=== PATIENT | male | born 1960 | race Caucasian/White ===

== ENCOUNTER 2019-12-22 09:51 | Outpatient (CLI) | payer BC, SELFPAY ==
[2019-12-22 10:14] LABS: Hematocrit 43.4 % (42.0-52.0); Hemoglobin 14.8 g/dL (14.0-18.0); Mean Corpuscular HGB Conc 34.1 g/dl (32-36); Mean Corpuscular Volume 90.8 fl (80-100); Mean Platelet Volume 8.6 fl (7.4-10.4); Platelet Count Result 274 k/mm3 (150-375); Red Blood Count 4.78 M/mm3 (4.6-6.20); Red Cell Distribution Width 12.9 % (11.5-14.5); White Blood Count 5.6 K/mm3 (4.5-10.0)
[2019-12-22 10:30] LABS: Blood Urea Nitrogen 20 mg/dL (9-20); Carbon Dioxide 30 mmol/L (22-30); Chloride 97 mmol/L (98-107); Estimated Glomerular Filt Rate > 60; Glucose 100 mg/dL (75-110); Potassium 4.2 mmol/L (3.4-5.0); Sodium 138 mmol/L (137-145)
--- NOTE | 2019-12-22 11:58 | ECG_ITS ---
Measurements Intervals [place] Rate: 70 P: 67 ME: 173 QRS: 22 QRSD: 119 T: 35 QT: 377 QTc: 408 Interpretive Statements SINUS RHYTHM INCOMPLETE RIGHT BUNDLE BRANCH BLOCK BORDERLINE ECG Electronically Signed On 12-22-2019 12:18:21 [employer] by Lino Rios D.O.
== END 2019-12-22 09:52 | disposition home or self-care (01) ==
DX: M51.26 Other intervertebral disc displacement, lumbar region (principal); I45.10 Unspecified right bundle-branch block
CPT/HCPCS: 36415; 80048; 85027; 93005

== ENCOUNTER → 2021-03-17 00:19 | Outpatient (CLI) | payer BC, SELFPAY ==
[2021-03-17 18:42] LABS: SARS-CoV-2 RNA PCR Negative
== END ==
PROVIDERS: PCP Family Medicine; Visit Provider Internal Medicine Gastroenterology
DX: Z01.812 Encounter for preprocedural laboratory examination (principal); Z20.822 Contact with and (suspected) exposure to COVID-19
CPT/HCPCS: C9803; U0003; U0005

== ENCOUNTER 2021-03-20 00:40 | Day surgery (SDC) | payer BC, SELFPAY ==
[2021-03-08 09:13] VITALS: BMI 33.2
[2021-03-20 08:08] VITALS: BP 123/71; PULSE 70; RESP 20; TEMP 35.2; O2SAT 100; BMI 33.0
[2021-03-20] MEDS: LACTATED RINGERS 1,000 ML 150 ML IV CONT (08:14)
--- NOTE | 2021-03-20 08:52 | WPDANESEPPF ---
Anes - Initial Pre Proc Eval Procedure: Operation Date: 03/20/21 09:15 Proposed Procedures p Screening Colonoscopy - Jaren Chavarria MD Date/Time: 03/20/21 08:52 Surgeon: Jaren Chavarria MD Pre Op Diagnosis: neoplasm screening Patient Data Age: 61 Gender: M Height: 6 ft Weight: 110.7 kg Last Vital Signs Temp 95.3 F L 03/20/21 08:08 Pulse 70 03/20/21 08:08 Resp 20 03/20/21 08:08 BP 123/71 03/20/21 08:08 Pulse Ox 100 03/20/21 08:08 Allergies Allergy/AdvReac Type Severity Reaction Status Date / Time oranges Allergy Severe Swelling Uncoded 03/20/21 08:00 of Lip/Tongue/Throat Home Medications Medication Instructions Recorded Confirmed Type escitalopram oxalate 10 mg tablet 10 mg PO DAILY #90 tablet 08/04/20 03/20/21 Rx cyanocobalamin (vitamin B-12) 1,000 mcg PO DAILY 08/14/20 03/20/21 History 1,000 mcg tablet linaclotide 145 mcg capsule 145 mcg PO DAILY #90 cap 02/20/21 03/20/21 Rx Patient hx anesthesia problems: none Family hx anesthesia problems: none PMFSH Past Medical History Medical History (Updated 01/31/21 @ 09:24 by Ronn Valdes MD) Abnormal fasting glucose BMI 33.0-33.9,adult Carpal tunnel syndrome of left wrist Chronic depression Chronic right shoulder pain Colon cancer screening Degenerative joint disease (DJD) of lumbar spine Depression Encounter for prostate cancer screening Encounter for wellness examination in adult Hypogonadism male IBS (irritable bowel syndrome) Irritable bowel syndrome with constipation Obesity (BMI 35.0-39.9 without comorbidity) Obstructive sleep apnea on CPAP Vitamin B12 deficiency anemia Surgical History Surgical History (Updated 01/14/20 @ 09:09 by Zeke Koroma CMA) History of lumbar spinal fusion L4-L5 2013 Hx of microdiscectomy Jan 08, 2020 L3-L4 Family History Family History (Updated 01/14/20 @ 09:10 by Zeke Koroma CMA) Father Acute myocardial infarction COPD (chronic obstructive pulmonary disease) Mother No problems noted. Social History Social History Smoking packs per day: 0.5 Smoking cigarettes per day: 10.0 Years smoked: 15 Smoking pack-years: 7.50 Smoking status: Former smoker Tobacco type: cigarettes Alcohol intake: current Drinks per week: 10 Substance use: never Substance use type: does not use Living arrangements: with family Spiritual care concerns: No Anes - Eval Final PreProcedure Day of Procedure 03/20/21 08:52 Patient weight: obese Heart: regular rate and rhythm Lungs: clear to auscultation Airway: Mallampati scale class II Neurological: alert and oriented Last oral intake: >/= 8 hours ASA classification: III Emergent: no Anesthetic plan: proceed Anesthesia type and monitoring: general GIVS and standard monitoring Informed Consent: The patient's anesthetic plan and its attendant risks and benefits were discussed with the patient/family/POA. Questions were solicited and answers provided to the satisfaction of the patient/family/POA.
--- NOTE | 2021-03-20 09:06 | PM.HPGS ---
History of Present Illness History of Present Illness Consent: Risks, benefits, and alternatives have been discussed and questions answered. Patient agrees to proceed with procedure. Chief complaint: neoplasm screening Narrative: Geoffrey Newman is a 61 year old male with last colonoscopy ~ 10 years ago. Review of Systems Constitutional: Constitutional: Denies headache(s) and Denies weakness Eyes: Eyes: Denies blurry vision ENT: Reports Normal hearing present, Denies headache(s) and Denies neck pain Cardiovascular: Cardiovascular: Denies chest pain and Denies dyspnea Respiratory: Respiratory: Denies dyspnea Gastrointestinal: Gastrointestinal: Reports no additional gastrointestinal complaints Genitourinary: Genitourinary: Denies dysuria Musculoskeletal: Musculoskeletal: Denies neck pain Integumentary/Breasts: Skin/Breast: Denies dry skin Neurologic: Reports Normal hearing present, Denies headache(s) and Denies weakness Psychiatric: Psychiatric: Denies anxiety Endocrine: Endocrine: Denies change in body appearance Hematologic/Lymphatic: Hematologic/Lymphatic: Denies easy bleeding Allergic/Immunologic: Allergic/Immunologic: Denies urticaria PMFSH Past Medical History Medical History (Updated 01/31/21 @ 09:24 by Ronn Valdes MD) Abnormal fasting glucose BMI 33.0-33.9,adult Carpal tunnel syndrome of left wrist Chronic depression Chronic right shoulder pain Colon cancer screening Degenerative joint disease (DJD) of lumbar spine Depression Encounter for prostate cancer screening Encounter for wellness examination in adult Hypogonadism male IBS (irritable bowel syndrome) Irritable bowel syndrome with constipation Obesity (BMI 35.0-39.9 without comorbidity) Obstructive sleep apnea on CPAP Vitamin B12 deficiency anemia Surgical History Surgical History (Updated 01/14/20 @ 09:09 by Zeke Koroma CMA) History of lumbar spinal fusion L4-L5 2013 Hx of microdiscectomy Jan 08, 2020 L3-L4 Family History Family History (Updated 01/14/20 @ 09:10 by Zeke Koroma CMA) Father Acute myocardial infarction COPD (chronic obstructive pulmonary disease) Mother No problems noted. Social History Social History Smoking packs per day: 0.5 Smoking cigarettes per day: 10.0 Years smoked: 15 Smoking pack-years: 7.50 Smoking status: Former smoker Tobacco type: cigarettes Alcohol intake: current Drinks per week: 10 Substance use: never Substance use type: does not use Living arrangements: with family Spiritual care concerns: No Meds Home Medications and Allergies Home Medications Medication Instructions Recorded Confirmed Type escitalopram oxalate 10 mg tablet 10 mg PO DAILY #90 tablet 08/04/20 03/20/21 Rx cyanocobalamin (vitamin B-12) 1,000 mcg PO DAILY 08/14/20 03/20/21 History 1,000 mcg tablet linaclotide 145 mcg capsule 145 mcg PO DAILY #90 cap 02/20/21 03/20/21 Rx Allergies Allergy/AdvReac Type Severity Reaction Status Date / Time oranges Allergy Severe Swelling Uncoded 03/20/21 08:00 of Lip/Tongue/Throat Vital Signs Vital Signs - 24 hr 03/20/21 08:08 Temperature 95.3 F L Pulse Rate 70 Respiratory Rate 20 Blood Pressure 123/71 Pulse Oximetry 100 Exam Const: General: comfortable and no acute distress HENMT: General nose exam: Normal nares present Eyes: General: appearance normal, both eyes and all related structures Neck: Neck: no JVD Resp: Auscultation: clear to auscultation bilaterally Cardio: Rate: regular rate Rhythm: regular rhythm GI: Inspection: non-distended GI Palp: Yes Soft to palpation Skin: General skin exam: normal color Neuro: General: gait normal Speech: normal speech Extrem: General: normal to inspection Psych: Mental Status: mental status grossly normal Assessment and Plan Assessment and plan (1)
[2021-03-20 09:29] VITALS: BP 110/87; PULSE 65; RESP 15; O2SAT 100
[2021-03-20 09:39] VITALS: BP 107/72; PULSE 61; RESP 13; O2SAT 100
[2021-03-20 09:49] VITALS: BP 111/78; PULSE 62; RESP 22; O2SAT 100
== END 2021-03-20 09:56 | disposition home or self-care (01) ==
PROVIDERS: PCP Family Medicine; Visit Provider Internal Medicine Gastroenterology
PROC: 0DJD8ZZ Inspection of Lower Intestinal Tract, Via Natural or Artificial Opening Endoscopic (ICD-10-PCS; CPT 45378; principal; 2021-03-20 09:15)
DX: Z12.11 Encounter for screening for malignant neoplasm of colon (principal); K57.30 Diverticulosis of large intestine without perforation or abscess without bleeding; K64.8 Other hemorrhoids; F32.9 Major depressive disorder, single episode, unspecified; K58.1 Irritable bowel syndrome with constipation; G47.33 Obstructive sleep apnea (adult) (pediatric); Z98.1 Arthrodesis status; Z87.891 Personal history of nicotine dependence; E66.9 Obesity, unspecified; Z68.33 Body mass index [BMI] 33.0-33.9, adult
CPT/HCPCS: 45378; J7120

== ENCOUNTER 2021-09-11 00:52 | Day surgery (SDC) | payer BC, SELFPAY ==
[2021-08-29 13:01] VITALS: BMI 34.7
[2021-09-11 12:13] VITALS: BP 125/70; PULSE 67; RESP 20; TEMP 35.8; O2SAT 100
[2021-09-11] MEDS: LACTATED RINGERS 1,000 ML 150 ML IV CONT (12:20)
--- NOTE | 2021-09-11 12:29 | WPDANESEPPF ---
Anes - Initial Pre Proc Eval Procedure: Operation Date: 09/11/21 13:30 Proposed Procedures p Esophagogastroduodenoscopy - Jaren Chavarria MD Date/Time: 09/11/21 12:29 Surgeon: Jaren Chavarria MD Pre Op Diagnosis: anemia Patient Data Age: 61 Gender: M Height: 1.83 m Weight: 116.6 kg Last Vital Signs Temp 35.8 C L 09/11/21 12:13 Pulse 67 09/11/21 12:13 Resp 20 09/11/21 12:13 BP 125/70 09/11/21 12:13 Pulse Ox 100 09/11/21 12:13 Allergies Allergy/AdvReac Type Severity Reaction Status Date / Time oranges Allergy Severe Swelling Uncoded 09/11/21 12:12 of Lip/Tongue/Throat Home Medications Medication Instructions Recorded Confirmed Type escitalopram oxalate 10 mg tablet 10 mg PO DAILY #90 tablet 08/04/20 09/11/21 Rx cyanocobalamin (vitamin B-12) 1,000 mcg PO DAILY 08/14/20 09/11/21 History 1,000 mcg tablet linaclotide [Linzess] 145 mcg PO DAILY PRN 08/29/21 09/11/21 History Patient hx anesthesia problems: none Family hx anesthesia problems: none Results Review: All pre-operative results and documents have been reviewed as part of the pre-operative evaluation. [facility] Past Medical History Medical History Abnormal fasting glucose Anemia BMI 33.0-33.9,adult BMI 35.0-35.9,adult Carpal tunnel syndrome of left wrist Chronic depression Chronic right shoulder pain Colon cancer screening (03/20/21) colonoscopy 03/20/2021 unremarkable except for diverticulosis and hemorrhoids. Recheck in 10 years Degenerative joint disease (DJD) of lumbar spine Depression Encounter for prostate cancer screening Encounter for wellness examination in adult Hot flash in male Hypogonadism male IBS (irritable bowel syndrome) Irritable bowel syndrome with constipation Obesity (BMI 35.0-39.9 without comorbidity) Obstructive sleep apnea on CPAP Vitamin B12 deficiency anemia Surgical History Surgical History History of lumbar spinal fusion L4-L5 2014 Hx of microdiscectomy Jan 08, 2020 L3-L4 Family History Family History Father Acute myocardial infarction COPD (chronic obstructive pulmonary disease) Mother No problems noted. Social History Social History Smoking packs per day: 0.5 Smoking cigarettes per day: 10.0 Years smoked: 15 Smoking pack-years: 7.50 Smoking status: Former smoker Tobacco type: cigarettes Alcohol intake: current Drinks per week: 10 Alcohol use details: Beer or Wine- Several drinks a week Substance use: never Substance use type: does not use Living arrangements: with family Spiritual care concerns: No Anes - Eval Final PreProcedure Day of Procedure 09/11/21 12:29 Patient weight: obese Heart: regular rate and rhythm Lungs: clear to auscultation Airway: Mallampati scale class II Neurological: alert and oriented Last oral intake: >/= 8 hours ASA classification: III Emergent: no Anesthetic plan: proceed Anesthesia type and monitoring: general GIVS and standard monitoring Results Review: All pre-operative results and documents have been reviewed as part of the pre-operative evaluation. Informed Consent: The patient's anesthetic plan and its attendant risks and benefits were discussed with the patient/family/POA. Questions were solicited and answers provided to the satisfaction of the patient/family/POA.
--- NOTE | 2021-09-11 12:43 | PM.HPGS ---
History of Present Illness History of Present Illness Consent: Risks, benefits, and alternatives have been discussed and questions answered. Patient agrees to proceed with procedure. Chief complaint: anemia Narrative: Geoffrey Newman is a 61 year old male with mild MARIA R, denies overt gib but he was taking nsaid's in daily basis for months- now discontinued. Had a recent colonoscopy for screening, only diverticulosis. Review of Systems Constitutional: Constitutional: Denies headache(s) and Denies weakness Eyes: Eyes: Denies blurry vision ENT: Reports Normal hearing present, Denies headache(s) and Denies neck pain Cardiovascular: Cardiovascular: Denies chest pain and Denies dyspnea Respiratory: Respiratory: Denies dyspnea Gastrointestinal: Gastrointestinal: Reports no additional gastrointestinal complaints Genitourinary: Genitourinary: Denies dysuria Musculoskeletal: Musculoskeletal: Denies neck pain Integumentary/Breasts: Skin/Breast: Denies dry skin Neurologic: Reports Normal hearing present, Denies headache(s) and Denies weakness Psychiatric: Psychiatric: Denies anxiety Endocrine: Endocrine: Denies change in body appearance Hematologic/Lymphatic: Hematologic/Lymphatic: Denies easy bleeding Allergic/Immunologic: Allergic/Immunologic: Denies urticaria PMF Past Medical History Medical History Abnormal fasting glucose Anemia BMI 33.0-33.9,adult BMI 35.0-35.9,adult Carpal tunnel syndrome of left wrist Chronic depression Chronic right shoulder pain Colon cancer screening (03/20/21) colonoscopy 03/20/2021 unremarkable except for diverticulosis and hemorrhoids. Recheck in 10 years Degenerative joint disease (DJD) of lumbar spine Depression Encounter for prostate cancer screening Encounter for wellness examination in adult Hot flash in male Hypogonadism male IBS (irritable bowel syndrome) Irritable bowel syndrome with constipation Obesity (BMI 35.0-39.9 without comorbidity) Obstructive sleep apnea on CPAP Vitamin B12 deficiency anemia Surgical History Surgical History History of lumbar spinal fusion L4-L5 2013 Hx of microdiscectomy Jan 08, 2020 L3-L4 Family History Family History Father Acute myocardial infarction COPD (chronic obstructive pulmonary disease) Mother No problems noted. Social History Social History Smoking packs per day: 0.5 Smoking cigarettes per day: 10.0 Years smoked: 15 Smoking pack-years: 7.50 Smoking status: Former smoker Tobacco type: cigarettes Alcohol intake: current Drinks per week: 10 Alcohol use details: Beer or Wine- Several drinks a week Substance use: never Substance use type: does not use Living arrangements: with family Spiritual care concerns: No Meds Home Medications and Allergies Home Medications Medication Instructions Recorded Confirmed Type escitalopram oxalate 10 mg tablet 10 mg PO DAILY #90 tablet 08/04/20 09/11/21 Rx cyanocobalamin (vitamin B-12) 1,000 mcg PO DAILY 08/14/20 09/11/21 History 1,000 mcg tablet linaclotide [Linzess] 145 mcg PO DAILY PRN 08/29/21 09/11/21 History Allergies Allergy/AdvReac Type Severity Reaction Status Date / Time oranges Allergy Severe Swelling Uncoded 09/11/21 12:12 of Lip/Tongue/Throat Vital Signs Vital Signs - 24 hr 09/11/21 12:13 Temperature 96.4 F L Pulse Rate 67 Respiratory Rate 20 Blood Pressure 125/70 Pulse Oximetry 100 Exam Const: General: comfortable and no acute distress HENMT: General nose exam: Normal nares present Eyes: General: appearance normal, both eyes and all related structures Neck: Neck: no JVD Resp: Auscultation: clear to auscultation bilaterally Cardio:
[2021-09-11 12:58] VITALS: BP 118/69; PULSE 67; RESP 20; O2SAT 100
[2021-09-11 13:08] VITALS: BP 119/70; PULSE 66; RESP 24; O2SAT 98
[2021-09-11 13:18] VITALS: BP 125/70; PULSE 66; RESP 24; O2SAT 100
== END 2021-09-11 13:29 | disposition home or self-care (01) ==
PROVIDERS: PCP Family Medicine; Visit Provider Internal Medicine Gastroenterology
PROC: 0DJ08ZZ Inspection of Upper Intestinal Tract, Via Natural or Artificial Opening Endoscopic (ICD-10-PCS; CPT 43235; principal; 2021-09-11 13:30)
DX: D64.9 Anemia, unspecified (principal); K29.60 Other gastritis without bleeding; F32.9 Major depressive disorder, single episode, unspecified; K58.1 Irritable bowel syndrome with constipation; G47.33 Obstructive sleep apnea (adult) (pediatric); E53.8 Deficiency of other specified B group vitamins; R73.01 Impaired fasting glucose; Z87.891 Personal history of nicotine dependence; Z98.1 Arthrodesis status; E66.9 Obesity, unspecified; Z68.34 Body mass index [BMI] 34.0-34.9, adult
CPT/HCPCS: 43239; 88305; J2704; J7120

== ENCOUNTER 2021-10-11 10:14 | Outpatient (CLI) | payer BC, SELFPAY ==
--- NOTE | 2021-10-11 11:00 | NEURO_ITS ---
Impression: # Complains of left hand numbness. # Left moderate Carpal Tunnel Syndrome. # Left ulnar neuropathy across the elbow. # Normal needle/EMG exam. Nerve Conduction Studies Anti Sensory Summary Table Stim Site NR Peak (ms) P-T Amp (?V) Site1 Site2 Delta-P (ms) Dist (cm) Joe (m/s) Left Median Anti Sensory (2-3nd Digit) Wrist 4.7 17.0 Wrist 2-3nd Digit 4.7 14.0 30 Wrist 5.1 11.5 Wrist 2-3nd Digit 4.7 14.0 30 Left Radial Anti Sensory (Base 1st Digit) Wrist 1.8 21.3 Wrist Base 1st Digit 1.8 0.0 Left Ulnar Anti Sensory (5th Digit) Wrist 2.6 24.4 Wrist 5th Digit 2.6 14.0 54 Motor Summary Table Stim Site NR Onset (ms) O-P Amp (mV) Site1 Site2 Delta-0 (ms) Dist (cm) Joe (m/s) Left Median Motor (Abd Poll Brev) Wrist 5.2 2.3 Elbow Wrist 5.3 30.0 57 Elbow 10.5 2.8 Left Ulnar Motor (Abd Dig Minimi) Wrist 2.4 8.6 A Elbow Wrist 6.0 31.0 52 A Elbow 8.4 6.9 B Elbow Wrist 4.6 28.0 61 B Elbow 7.0 6.0 F Wave Studies NR F-Lat (ms) L-R F-Lat (ms) Left Median (Mrkrs) (Abd Poll Brev) 31.50 Left Ulnar (Mrkrs) (Abd Dig Min) 30.00 EMG Side Muscle Nerve Root Ins Act Fibs Amp Dur Recrt Comment Left 1stDorInt Ulnar C8-T1 Nml Nml Nml Nml Nml Left Ext Indicis Radial (Post Int) C7-8 Nml Nml Nml Nml Nml Left Ext Digitorum Radial (Post Int) C7-8 Nml Nml Nml Nml Nml Left BrachioRad Radial C5-6 Nml Nml Nml Nml Nml Left PronatorTeres Median C6-7 Nml Nml Nml Nml Nml Left Abd Poll Brev Median C8-T1 Nml Nml Nml Nml Nml Left ABD Dig Min Ulnar C8-T1 Nml Nml Nml Nml Nml MTDD
== END 2021-10-11 10:15 | disposition home or self-care (01) ==
PROVIDERS: PCP Family Medicine; Visit Provider Family Medicine
DX: G56.02 Carpal tunnel syndrome, left upper limb (principal); G56.22 Lesion of ulnar nerve, left upper limb
CPT/HCPCS: 95886; 95909

== ENCOUNTER 2024-06-17 11:02 | Outpatient (CLI) | payer BC, SELFPAY ==
--- NOTE | ~2024-06-17 | MR_ITS ---
MRI of the left foot Clinical history: Arthralgia TECHNIQUE: Sagittal T1-weighted and STIR images, axial proton-density and proton-density fat-sat imag es, and coronal T1 weighted and proton density fat sat images were performed. FINDINGS: Syndesmotic ligaments of the ankle are intact. Anterior and posterior talofibular ligaments , and calcaneofibular ligament are intact. Deltoid ligament is intact. Medial flexor tendons at the ankle, peroneus longus tendon, anterior extensor tendons, and Achilles t endon are intact. There is focal longitudinal split tear of the peroneus brevis tendon at the level o f the lateral malleolar tip. There is focal chondromalacia at the lateral corner of the talar dome. There is mild degenerative antonio nge of the talonavicular reticulation. There is moderate to advanced degenerative change of the tarso metatarsal joints, worst at the third TMT joint. No joint effusion evident. Plantar fascia demonstrates mild thickening proximally. Plantar calcaneal spur present. No soft tissu e mass or fluid collection seen. No distinct abnormality seen the plantar aspect of foot at the locat ion of the marker. IMPRESSION: Longitudinal split tear of the peroneal brevis tendon at the level of the lateral malleolus tip. Mild thickening of the proximal plantar fascia. Correlate for minimal plantar fasciitis, likely chron ic. Degenerative changes, as above. Reviewed, dictated and finalized at [facility]. IMPRESSION: Longitudinal split tear of the peroneal brevis tendon at the level of the later al malleolus tip. Mild thickening of the proximal plantar fascia. Correlate for minimal plantar f asciitis, likely chronic. Degenerative changes, as above.
== END 2024-06-17 11:03 ==
PROVIDERS: PCP Family Medicine; Visit Provider Podiatrist Foot & Ankle Surgery
DX: M19.072 Primary osteoarthritis, left ankle and foot (principal); S86.312A Strain of muscle(s) and tendon(s) of peroneal muscle group at lower leg level, left leg, initial encounter; M79.89 Other specified soft tissue disorders; X58.XXXA Exposure to other specified factors, initial encounter
CPT/HCPCS: 73718